=== PATIENT | female | born 1940 | race Caucasian/White ===

== ENCOUNTER → 2021-05-24 | Outpatient (CLI) | payer MEDICARE, BC ==
[~2021-05-24] MED LIST: DARVOCET N 1001 TAB PO
== END | disposition home or self-care (01) ==
LOC: COVID19 15:32
PROVIDERS: ATTEND Internal Medicine
DX: U07.1 COVID-19 (principal)

== ENCOUNTER 2021-06-02 16:59 | Emergency (ER) | payer MEDICARE, BC ==
[~2021-06-02] VITALS: Ht 162.5 cm; Wt 72.6 kg
[2021-06-02 17:37] LABS: EOS % 0.4 % (1.0-4.0); HEMATOCRIT 33.7 % (37.0-47.0); LYMPH # 0.7 10*3/uL (1.3-4.4); LYMPH % 30.8 % (27.0-41.0); MEAN CELL VOLUME 92.8 fl (81.0-99.0); MEAN CORPUSCULAR HGB 30.6 pg (27.0-31.0); MEAN CORPUSCULAR HGB CONC 32.9 g/dl (33.0-37.0); MEAN PLATELET VOLUME 9.6 fl (9.6-12.3); MONO # 0.2 10*3/uL (0.1-1.0); MONO % 8.4 % (3.0-9.0); NEUT # 1.4 10*3/uL (2.3-7.9); NEUT % 60.4 % (47.0-73.0); PLATELET COUNT AUTOMATED 124 10*3/uL (130-400); RED BLOOD COUNT 3.63 10*6/uL (4.10-5.10); RED CELL DISTRI WIDTH 12.9 % (0-14.5); WHITE BLOOD COUNT 2.4 10*3/uL (4.8-10.8)
[2021-06-02 17:53] LABS: ALBUMIN 3.5 gm/dl (3.1-4.5); ALKALINE PHOSPHATASE 69 U/L (45-117); BUN 20 mg/dl (7-24); CHLORIDE 104 mmol/L (98-107); CREATININE 0.94 mg/dL (0.55-1.02); POTASSIUM 4.5 mmol/L (3.5-5.1); SGOT/AST 26 IU/L (3-35); SGPT/ALT 22 U/L (12-78); SODIUM 136 mmol/L (136-145)
[2021-06-02 20:03] VITALS: BP 109/53
[2021-06-03] MEDS ORDERED: ZOFRAN4 MG PO (13:19)
== END 2021-06-02 20:50 | disposition home or self-care (01) ==
LOC: ED 16:59
PROVIDERS: Physician Assistant
DX: U07.1 COVID-19 (principal); Z90.49 Acquired absence of other specified parts of digestive tract

== ENCOUNTER 2023-11-28 21:34 | Emergency (ER) | payer MEDICARE, BC ==
[~2023-11-28] VITALS: Ht 152.4 cm; Wt 75.7 kg
[~2023-11-28 21:34] MED LIST changes: +ZOFRAN4 MG PO
[2023-11-28 21:44] VITALS: BP 109/58
[2023-11-28] MEDS ORDERED: PACERONE100 MG PO (21:53)
[2023-11-28] MEDS ORDERED: ELIQUIS5 M1 PO (21:53)
[2023-11-28] MEDS ORDERED: PROTONIX40 MG PO (21:53)
[2023-11-28] MEDS ORDERED: ATORVASTATIN CA20 M1 PO (21:53)
[2023-11-28] MEDS ORDERED: CARAFATE1 G1 PO (21:55)
[2023-11-28] MEDS ORDERED: METHENAMINE MANDELATE 1 GM MC (21:55)
[2023-11-28] MEDS ORDERED: VENT7GM INH (21:56)
[2023-11-28] MEDS ORDERED: ESTRACE 0.01%42.5 GM V (21:56)
[2023-11-28 22:23] LABS: BASO % 0.8 % (0.0-1.0); EOS # 0.1 10*3/uL (0.0-0.4); EOS % 2.9 % (1.0-4.0); HEMATOCRIT 31.4 % (37.0-47.0); LYMPH # 1.2 10*3/uL (1.3-4.4); LYMPH % 31.2 % (27.0-41.0); MEAN CELL VOLUME 92.6 fl (81.0-99.0); MEAN CORPUSCULAR HGB 28.3 pg (27.0-31.0); MEAN CORPUSCULAR HGB CONC 30.6 g/dl (33.0-37.0); MEAN PLATELET VOLUME 9.6 fl (9.6-12.3); MONO # 0.4 10*3/uL (0.1-1.0); MONO % 9.3 % (3.0-9.0); NEUT # 2.1 10*3/uL (2.3-7.9); NEUT % 55.5 % (47.0-73.0); PLATELET COUNT AUTOMATED 179 10*3/uL (130-400); RED BLOOD COUNT 3.39 10*6/uL (4.10-5.10); RED CELL DISTRI WIDTH 14.7 % (0-14.5); WHITE BLOOD COUNT 3.8 10*3/uL (4.8-10.8)
[2023-11-28 22:33] LABS: ACT PARTIAL THROMBO TIME 27.3 SECONDS (20.0-32.1)
[2023-11-28] MEDS ORDERED: FUROSEMIDE 40 MG TAB PO ONE (23:10)
[2023-11-28] MEDS ORDERED: VIBRAMYCIN100 MG PO (23:33)
[2023-11-28] MEDS ORDERED: LASIX20 MG PO (23:33)
== END 2023-11-29 00:01 | disposition home or self-care (01) ==
LOC: ED 21:34
PROVIDERS: Internal Medicine
DX: I87.2 Venous insufficiency (chronic) (peripheral) (principal); I48.91 Unspecified atrial fibrillation; E78.00 Pure hypercholesterolemia, unspecified; R42 Dizziness and giddiness; Z90.49 Acquired absence of other specified parts of digestive tract; Z98.890 Other specified postprocedural states